=== PATIENT | male | born 1980 | race Two or more races ===

== ENCOUNTER → 2024-09-22 | Outpatient (CLI) | payer MEDICAID, SELFPAY ==
--- NOTE | 2024-09-22 16:27 | XR_ITS ---
Examination: Hand, right 3 views Technique: Hand AP, oblique, lateral 3 views Date and time of exam: September 22, 2024 1704 hrs. Indications: Injury to the hand 2 weeks ago with persistent third digit pain Findings: Soft tissue swelling about the third digit No acute fracture No dislocation No opaque foreign body No cortical bone destruction Impression: No acute fracture
--- NOTE | 2024-09-22 16:27 | XR_ITS ---
Examination: Wrist, right 3 views Technique: Wrist AP, oblique, lateral 3 views Date and time of exam: September 22, 2024 1704 hrs. Indications: Injury to the wrist 2 weeks ago with wrist pain. Findings: No fracture or dislocation No opaque foreign body Impression: No fracture or dislocation
== END | disposition home or self-care (01) ==
DX: S69.91XA Unspecified injury of right wrist, hand and finger(s), initial encounter (principal); X58.XXXA Exposure to other specified factors, initial encounter
CPT/HCPCS: 73110; 73130